=== PATIENT | male | born 1990 | race Caucasian/White ===

== ENCOUNTER 2019-02-11 18:03 | Emergency (ER) | payer SELFPAY ==
--- NOTE | 2019-02-11 20:14 | ER Document Report ---
ED Medical Screen (RME) - General Chief Complaint: Abdominal Pain Stated Complaint: FEET/TOES NUMBNESS, INTESTINAL ISSUES Time Seen by Provider: 02/11/19 20:09 Mode of Arrival: Ambulatory Information source: Patient Notes: 29-year-old male presented to ED for feet numbness and yesterday. He states he got multiple fire ant bites to both feet 2 days ago. He states he is also had some upset stomach and pain in the upper abdomen. He states it feels almost like he is constipated but he knows he had bowel movements. He states he had a twisted knotted and tested a year ago and ended up being in the hospital for about 5 or 6 days but did not end up having surgery. He states he is worried that he might be getting a twisted intestines again. 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 He is alert oriented respirations regular and unlabored speaking in full sentences walks with even steady gait. Patient is nontoxic in appearance. I have greeted and performed a rapid initial assessment of this patient. A comprehensive ED assessment and evaluation of the patient, analysis of test results and completion of medical decision making process will be conducted by an additional ED providers. - Related Data Allergies/Adverse Reactions: No Known Allergies Allergy (Verified 02/11/19 19:53) Past Medical History - Social History Frequency of alcohol use: Social Drug Abuse: Marijuana Physical Exam - Vital signs Vitals: Temp Pulse Resp BP Pulse Ox 97.7 F 62 18 131/65 H 96 02/11/19 18:16 02/11/19 18:16 02/11/19 18:16 02/11/19 18:16 02/11/19 18:16 Course - Vital Signs Vital signs: Temp Pulse Resp BP Pulse Ox 97.7 F 62 18 131/65 H 96 02/11/19 18:16 02/11/19 18:16 02/11/19 18:16 02/11/19 18:16 02/11/19 18:16
[2019-02-11 20:30] LABS: ABSOLUTE BASOPHILS # (AUTO) 0.1 10^3/uL (0.0-0.2); ABSOLUTE EOSINOPHILS # (AUTO) 0.2 10^3/uL (0.0-0.6); ABSOLUTE LYMPHOCYTES (AUTO) 2.4 10^3/uL (0.5-4.7); BASOPHILS % (AUTO) 0.7 % (0-2); HEMATOCRIT 43.2 % (37.9-51.0); HEMOGLOBIN 14.6 g/dL (13.5-17.0); LYMPHOCYTES % (AUTO) 32.2 % (13-45); MEAN CORPUSCULAR HEMOGLOBIN 29.3 pg (27.0-33.4); MEAN CORPUSCULAR HGB CONC 33.8 g/dL (32.0-36.0); MEAN CORPUSCULAR VOLUME 87 fl (80-97); MONOCYTES % (AUTO) 12.8 % (3-13); PLATELET COUNT 276 10^3/uL (150-450); RED BLOOD COUNT 4.99 10^6/uL (4.35-5.55); RED CELL DISTRIBUTION WIDTH 13.8 % (11.5-14.0); SEGMENTED NEUTROPHILS % (AUTO) 52.3 % (42-78); TOTAL CELLS COUNTED % (AUTO) 100 %; WHITE BLOOD COUNT 7.6 10^3/uL (4.0-10.5)
[2019-02-11 20:35] LABS: APPEARANCE,URINE SLIGHTLY-CLOUDY; BILIRUBIN,URINE NEGATIVE (NEGATIVE); COLOR,URINE YELLOW; GLUCOSE, URINE NEGATIVE (NEGATIVE); KETONES,URINE NEGATIVE (NEGATIVE); LEUKOCYTE ESTERASE,URINE NEGATIVE (NEGATIVE); NITRITE,URINE NEGATIVE (NEGATIVE); PROTEIN,URINE NEGATIVE (NEGATIVE); URINE SPECIFIC GRAVITY 1.023; UROBILINOGEN,URINE NEGATIVE mg/dL (<2.0)
[2019-02-11 20:50] LABS: ALBUMIN 4.7 g/dL (3.5-5.0); ALKALINE PHOSPHATASE 68 U/L (38-126); ANION GAP 10 (5-19); ASPARTATE AMINO TRANSFERASE 44 U/L (17-59); BILIRUBIN,DIRECT 0.2 mg/dL (0.0-0.4); BILIRUBIN,TOTAL 0.4 mg/dL (0.2-1.3); BLOOD UREA NITROGEN 16 mg/dL (7-20); CARBON DIOXIDE 27 mmol/L (22-30); CHLORIDE 103 mmol/L (98-107); GLUCOSE 102 mg/dL (75-110); POTASSIUM 3.9 mmol/L (3.6-5.0); TOTAL PROTEIN 7.9 g/dL (6.3-8.2)
--- NOTE | 2019-02-11 21:41 | RADIOLOGY REPORT (SQ) ---
EXAM DESCRIPTION: XR ABDOMEN SUPINE AND ERECT WITH CHEST (ABD ACUTE SERIES) COMPLETED DATE/TME: 02/11/2019 20:11 CLINICAL HISTORY: 29 years, Male, Abdominal pain. History of twisted intestines COMPARISON: None. NUMBER OF VIEWS: 3 TECHNIQUE: Upright chest with supine and erect views of the abdomen LIMITATIONS: None. FINDINGS: Heart size normal. Lungs clear. No pneumothorax. No free air under the hemidiaphragms. The bowel gas pattern is nonspecific. Abundant stool in the colon. No free air IMPRESSION: Negative chest. Abundant stool in the colon copyright 2010 [facility] [employer]- All Rights Reserved
--- NOTE | 2019-02-12 01:24 | ER Document Report ---
ED GI/ - General Chief Complaint: Abdominal Pain Stated Complaint: FEET/TOES NUMBNESS, INTESTINAL ISSUES Time Seen by Provider: 02/11/19 20:09 Mode of Arrival: Ambulatory Information source: Patient - HPI Patient complains to provider of: Abdominal pain. No: Diarrhea, Dysuria, F eeding tube problem, Flank pain, Boucher catheter problem, Groin pain, Hematuria, Testicular pain, Urinary retention, Vomiting, Other Onset: Last week Timing/Duration: Gradual Quality of pain: Cramping Severity at maximum: Mild Severity in ED: Mild Location: LLQ. No: Chest pain, Epigastric, LUQ, RUQ, RLQ, Left flank, Right flank, Low back, Suprapubic, Pelvis, Left testicle, Right testicle, Rectal, Other Associated symptoms: Constipation. denies: None, Blood in emesis, Blood in stool, Chest pain, Chills, Coffee ground emesis, Diarrhea, Dizzy, Dysuria, Erection problem, Fever, Foreskin problem, Hard stool, Hematuria, Hematospermia, Hurts to breath, Inguinal mass, Lightheaded, Loss of appetite, Nausea, Painful intercourse, Penile discharge, Radiates to back, Radiates to chest, Radiates to testicles, Radiates to shoulder, Shortness of breath, Sweaty, Syncope, Urinary hesitancy, Urinary frequency, Urinary retention, Urinary urgency, Vomiting, Other Exacerbated by: Denies Relieved by: Denies Notes: 02/12/19 01:19 This is a 29-year-old with chief complaint of abdominal pain and constipation. He claims he has tried mag citrate and MiraLAX without relief. Any vomiting fever chills or other complaints except that he occasionally has tingling in his toes which comes and goes and is not presently there. - Related Data Allergies/Adverse Reactions: No Known Allergies Allergy (Verified 02/11/19 19:53) Past Medical History - General Information source: Patient - Social History Smoking Status: Never Smoker Frequency of alcohol use: Social Drug Abuse: Marijuana Family History: None Patient has suicidal ideation: No Patient has homicidal ideation: No Past Surgical History: Reports: Hx Abdominal Surgery - intestinal repair Review of Systems - Review of Systems Constitutional: denies: No symptoms reported, See HPI, Chills, Diaphoresis, Fever, Malaise, Weakness, Other, Weight gain, Weight loss, Recent illness Cardiovascular: No symptoms reported, See HPI, Chest pain, Palpitations, Heart racing, Orthopnea, Dyspnea, Syncope, Dizziness, Lightheaded, Edema, Other, Paroxysmal Nocturnal Dysp Respiratory: denies: No symptoms reported, See HPI, Cough, Hurts to breathe, Hemoptysis, Short of breath, Sputum, Stridor, Wheezing, Other Gastrointestinal: Abdominal pain, Constipation. denies: No symptoms reported, See HPI, Abdomen distended, Diarrhea, Nausea, Vomiting, Blood streaked bowels, Poor appetite, Poor fluid intake, Blood in vomit, Black stools, Rectal bleeding, Last bowel movement, Fecal incontinence, Other Genitourinary: denies: No symptoms reported, See HPI, Burning, Dysuria, Discharge, Frequency, Flank pain, Hematuria, Incontinence, Pain, Urgency, Retent ion, Other Male Genitourinary: denies: No symptoms reported, See HPI, Erectile dysfunction, Testicular pain, Penile discharge, Other Musculoskeletal: denies: No symptoms reported, See HPI, Back pain, Gout, Joint pain, Joint swelling, Muscle pain, Muscle stiffness, Neck pain, Deformity, Leg swelling, Ankle swelling, Other -: Yes All other systems reviewed and negative Physical Exam - Vital signs Vitals: Temp Pulse Resp BP Pulse Ox 97.7 F 62 18 131/65 H 96 02/11/19 18:16 02/11/19 18:16 02/11/19 18:16 02/11/19 18:16 02/11/19 18:16 Notes: PHYSICAL EXAMINATION: GENERAL: Well-appearing, well-nourished and in no acute distress. HEAD: Atraumatic, normocephalic. EYES: Pupils equal round and reactive to light, extraocular movements intact, sclera anicteric, conjunctiva are normal. ENT: nares patent, oropharynx clear without exudates. Moist mucous membranes. NECK: Normal range of motion, supple without lymphadenopathy LUNGS: Breath sounds clear to auscultation bilaterally and equal. No wheezes rales or rhonchi. HEART: Regular rate and rhythm without murmurs ABDOMEN: Soft, mild left lower quad pain, normoactive bowel sounds. No guarding, no rebound. No masses appreciated. EXTREMITIES: Normal range of motion, no pitting or edema. No cyanosis. NEUROLOGICAL: No focal neurological deficits. Moves all extremities spontaneously and on command. PSYCH: Normal mood, normal affect. SKIN: Warm, Dry, normal turgor, no rashes or lesions noted. Course - Vital Signs Vital signs: Temp Pulse Resp BP Pulse Ox 97.7 F 62 18 131/65 H 96 02/11/19 18:16 02/11/19 18:16 02/11/19 18:16 02/11/19 18:16 02/11/19 18:16 - Laboratory Result Diagrams: 02/11/19 20:20 02/11/19 20:20 Laboratory results interpreted by me: 02/11/19 20:10 Urine Blood SMALL H - Diagnostic Test Radiology reviewed: Image reviewed, Reports reviewed - Transfer of Care Notes: 02/12/19 01:21 Patient has constipation. He has mild tenderness I discussed with him that we will give him some lactulose prescription and Colace prescription drink a lot of fluids return if any worse since the tingling in his feet is intermittent if it persists he needs to get follow-up with a neurologist. Discharge - Discharge Clinical Impression: Constipation Condition: Good Disposition: HOME, SELF-CARE Instructions: Abdominal Pain ([facility]) Additional Instructions: Increase fluids in your diet and fiber if you have increased pain vomiting black or bloody stools or condition worsens if the tingling in your feet gets worse or weakness in your legs develops return to the emergency department immediately Prescriptions: Docusate Sodium [Colace 100 mg Capsule] 100 mg PO DAILY #30 capsule Lactulose 10 gm PO DAILY PRN #200 ml PRN Reason: For Constipation
[2019-02-12 01:31] VITALS: BP 134/74
== END 2019-02-12 01:33 | disposition home or self-care (01) ==
LOC: ER 18:03
DX: K59.00 Constipation, unspecified (principal); R10.32 Left lower quadrant pain; R20.2 Paresthesia of skin
CPT/HCPCS: 36415; 74022; 80053; 81001; 85025; 99284